=== PATIENT | male | born 2005 | race Hispanic/Latino ===

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

== ENCOUNTER 2023-03-13 22:18 | Emergency (ER) | payer OTHER, MEDICAID, SELFPAY ==
[2023-03-13 22:33] VITALS: BP 124/69; PULSE 93; RESP 18; TEMP 37.1; O2SAT 99; BMI 20.2
--- NOTE | 2023-03-13 22:39 | DI.RAD.S_ITS ---
PROCEDURE: XR HAND RT MIN 3V INDICATIONS: injury TECHNIQUE: Three views of the right hand acquired. COMPARISON: None. FINDINGS: Bones: No fractures or dislocations. Carpal bones are normally aligned. No suspicious bony lesions. Soft tissues: No suspicious soft tissue calcifications. IMPRESSION: 1. No fracture or dislocation. Dictated by: Cade Timmons M.D. on 03/13/2023 at 23:40 Approved by: Cade Timmons M.D. on 03/13/2023 at 23:40
--- NOTE | 2023-03-13 22:40 | DI.RAD.S_ITS ---
PROCEDURE: XR SHOULDER LT MIN 2V INDICATIONS: injury TECHNIQUE: 2 views of the shoulder were acquired. COMPARISON: None. FINDINGS: Bones: No fractures. The acromioclavicular joint appears mildly incongruent suggestive of a mild sprain. No suspicious bony lesions. Visualized ribs appear intact. Soft tissues: No suspicious soft tissue calcifications. IMPRESSION: 1. Suspected mild grade 2 sprain of the acromioclavicular joint. Dictated by: Cade Timmons M.D. on 03/13/2023 at 23:41 Approved by: Cade Timmons M.D. on 03/13/2023 at 23:42
[2023-03-13 22:58] VITALS: BP 126/57; PULSE 91; TEMP 37.6; O2SAT 98
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
[2023-03-14 00:37] VITALS: BP 110/58; PULSE 91; RESP 18; O2SAT 96
[2023-03-14] MEDS: HYDROCODONE/ACET 5/325 PREPACK 1 BOTTLE MISC (00:39)
== END 2023-03-14 00:37 | disposition home or self-care (01) ==
PROVIDERS: Emergency Provider Emergency Medicine; PCP Pediatrics
DX: S43.52XA Sprain of left acromioclavicular joint, initial encounter (principal); S60.221A Contusion of right hand, initial encounter; S20.312A Abrasion of left front wall of thorax, initial encounter; V86.56XA Driver of dirt bike or motor/cross bike injured in nontraffic accident, initial encounter
CPT/HCPCS: 73030; 73130; 99283